=== PATIENT | female | born 1965 | race American Indian/Alaskan Native ===

== ENCOUNTER 2018-04-02 15:02 | Outpatient (CLI) | payer OTHER ==
--- NOTE | 2018-04-03 09:50 | Mammography Report ---
BILATERAL DIGITAL SCREENING MAMMOGRAM with CAD: 04/02/18 15:02:00 CLINICAL: Routine screening. COMPARISON:06/09/14 FINDINGS: The breasts are heterogeneously dense, which may obscure small masses. No mass, architectural distortion or suspicious calcifications. IMPRESSION: No mammographic evidence of malignancy. BI-RADS CATEGORY: 1 - - Negative RECOMMENDATION: Routine mammographic screening in one year. COMMENT: Patient follow-up letters are generated by our [employer] application.
== END 2018-04-02 15:03 | disposition home or self-care (01) ==
LOC: SPVWC 15:02
PROVIDERS: ATTEND Obstetrics & Gynecology
DX: Z12.31 Encounter for screening mammogram for malignant neoplasm of breast (principal)
CPT/HCPCS: 77067